=== PATIENT | male | born 1955 | race Caucasian/White ===

== ENCOUNTER 2018-04-21 07:48 | Day surgery (SDC) | payer BC ==
[~2018-04-21 07:48] MED LIST: LIDOCAINE 2% INJ 100 MG/5 ML SDV (FOR ANES.) As Ordered; PROPOFOL 200 MG/20 ML VIAL As Ordered
[2018-04-21] MEDS: NS 1,000 ML IV (08:00)
[2018-04-21] MEDS ORDERED: PROPOFOL 200 MG/20 ML VIAL As Ordered (09:19)
[2018-04-21] MEDS ORDERED: ONDANSETRON 4MG/2ML VIAL (J2405) As Ordered (09:25)
== END 2018-04-21 10:17 | disposition home or self-care (01) ==
LOC: M OPP 07:48
DX: Z12.11 Encounter for screening for malignant neoplasm of colon (principal); K64.0 First degree hemorrhoids; K57.30 Diverticulosis of large intestine without perforation or abscess without bleeding
CPT/HCPCS: 45378

== ENCOUNTER 2018-10-04 13:09 | Day surgery (SDC) | payer BC ==
[~2018-10-04] VITALS: Ht 182.9 cm; Wt 93.0 kg
[2018-10-04] MEDS: NS 1,000 ML IV ONE (06:00)
[~2018-10-04 13:09] MED LIST changes: -LIDOCAINE 2% INJ 100 MG/5 ML SDV (FOR ANES.) As Ordered; +MAXA10TA14 PO; +PRIL20CA9 PO; +PRIL20TA2 PO; -PROPOFOL 200 MG/20 ML VIAL As Ordered; +VIAG100T PO
[2018-10-04] MEDS ORDERED: fentaNYL 100 MCG/2 ML INJECTION (J3010) As Ordered ONE (15:09)
[2018-10-04] MEDS ORDERED: LIDOCAINE 2% INJ 100 MG/5 ML SDV (FOR ANES.) As Ordered ONE (15:09)
[2018-10-04] MEDS ORDERED: PROPOFOL 500 MG/50 ML VIAL As Ordered ONE (15:09)
--- NOTE | 2018-10-04 15:25 | ROOR ---
Patient Name: Devin Wolfe Procedure Date: 10/04/2018 3:07 PM Date of : 1955 Age: 63 Room: [facility] Gender: Male Note Status: Finalized Procedure: Upper Endoscopy + Biopsies Indications: Heartburn, Exclusion of Brown's esophagus Providers: Catarino Roman MD Referring MD: DARYL BUSTILLOS JR, MD Requesting Provider: Medicines: Monitored Anesthesia Care Complications: No immediate complications. Procedure: Pre-Anesthesia Assessment: - The heart rate, respiratory rate, oxygen saturations, blood pressure, adequacy of pulmonary ventilation, and response to care were monitored throughout the procedure. The Endoscope was introduced through the mouth, and advanced to the second part of duodenum. The upper GI endoscopy was accomplished without difficulty. The patient tolerated the procedure well. Findings: The Z-line was irregular and was found 40 cm from the incisors. Multiple biopsies were obtained with cold forceps for evaluation to rule out Brown's Esophagus randomly at the gastroesophageal junction. A small hiatal hernia was present. No other significant abnormalities were identified in a careful examination of the stomach. The exam of the duodenum was otherwise normal. Impression: - Z-line irregular, 40 cm from the incisors. - Small hiatal hernia. - Multiple biopsies were obtained at the gastroesophageal junction. - The examination was otherwise normal. Recommendation: - Patient has a contact number available for emergencies. The signs and symptoms of potential delayed complications were discussed with the patient. Return to normal activities tomorrow. Written discharge instructions were provided to the patient. - High fiber diet. - Discharge patient to home. - Follow an antireflux regimen. - Continue present medications. - Await pathology results. - Telephone GI clinic for pathology results in 1 week. - Return to referring physician. - Repeat upper endoscopy for surveillance based on pathology results. - The findings and recommendations were discussed with the patient's family. Catarino Roman MD Catarino Roman MD 10/04/2018 3:24:58 PM Electronically signed by Catarino Roman MD Number of Addenda: 0 Note Initiated On: 10/04/2018 3:07 PM Estimated Blood Loss: Estimated blood loss: none.
[2018-10-04 15:35] VITALS: BP 118/72
== END 2018-10-04 15:55 | disposition home or self-care (01) ==
LOC: M OPP 13:09
PROVIDERS: ATTEND Internal Medicine Gastroenterology
DX: K22.8 Other specified diseases of esophagus (principal); K44.9 Diaphragmatic hernia without obstruction or gangrene; R12 Heartburn
CPT/HCPCS: 43239; 88305; J3010

== ENCOUNTER → 2021-11-22 | Outpatient (CLI) | payer BC, MEDICARE | LOC: M PLALAB 09:38 | PROVIDERS: ATTEND Nurse Practitioner Women's Health | DX: R97.20 Elevated prostate specific antigen [PSA] (principal) ==

== ENCOUNTER → 2022-05-23 | Outpatient (REF) | payer MEDICARE, BC ==
[~2022-05-23] MED LIST changes: -MAXA10TA14 PO; +RIZA10TA64 PO
== END ==
LOC: M LAB REF 12:32
PROVIDERS: ATTEND Internal Medicine
DX: R97.20 Elevated prostate specific antigen [PSA] (principal)

== ENCOUNTER → 2022-10-07 | Outpatient (REF) | payer MEDICARE, BC | LOC: M LAB REF 12:50 | PROVIDERS: ATTEND Internal Medicine | DX: R68.82 Decreased libido (principal) ==

== ENCOUNTER 2023-03-08 12:13 | Emergency (ER) | payer BC, MEDICARE ==
[~2023-03-08] VITALS: Ht 182.9 cm; Wt 98.6 kg
[2023-03-08] MEDS ORDERED: NS 1,000 ML IV ONE (13:35)
[2023-03-08 13:54] LABS: BASO % 0.6 % (0.0-1.0); EOS # 0.4 10^3/uL (0.0-0.5); EOS % 6.3 % (0.0-3.0); HEMATOCRIT 44.3 % (42.0-52.0); HEMOGLOBIN 15.5 g/dl (13.5-17.5); LYMPH # 1.2 10^3/uL (1.5-5.0); LYMPH % 18.7 % (24.0-44.0); MEAN CORPUSCULAR HEMOGLOBIN 30.1 pg (27.0-33.0); MONO # 0.5 10^3/uL (0.0-0.8); MONO % 7.7 % (2.0-8.0); NEUTROPHILS # 4.4 10^3/uL (1.5-8.5); NEUTROPHILS % 66.5 % (36.0-66.0); PLATELET COUNT, AUTOMATED 224 10^3/uL (150-450); RED BLOOD COUNT 5.15 10^6/uL (4.30-6.10); WHITE BLOOD COUNT 6.5 10^3/uL (4.0-10.0)
[2023-03-08] MEDS ORDERED: FLOM0.4C39 PO (15:15)
[2023-03-08 15:42] VITALS: BP 131/81; TEMP 97.8; O2SAT 98
== END 2023-03-08 15:44 | disposition home or self-care (01) ==
LOC: M ED 12:13
DX: N20.1 Calculus of ureter (principal); N40.1 Benign prostatic hyperplasia with lower urinary tract symptoms; Z79.899 Other long term (current) drug therapy

== ENCOUNTER 2023-04-20 13:04 | Day surgery (SDC) | payer MEDICARE ==
[~2023-04-20] VITALS: Ht 182.9 cm; Wt 101.2 kg
[~2023-04-20 13:04] MED LIST changes: +FLOM0.4C39 PO; +NS 1,000 ML IV ONE; +OMEP-173 PO
[2023-04-20] MEDS ORDERED: fentaNYL 100 MCG/2 ML INJECTION As Ordered ONE (14:20)
[2023-04-20] MEDS ORDERED: propofoL 200 MG/20 ML VIAL As Ordered ONE (14:21)
[2023-04-20] MEDS ORDERED: LIDOCAINE 2% 100MG/5ML SDV (FOR ANES.) As Ordered ONE (14:22)
[2023-04-20 14:34] VITALS: TEMP 97.7
[2023-04-20 14:55] VITALS: BP 115/68; O2SAT 98
== END 2023-04-20 15:02 | disposition home or self-care (01) ==
LOC: M OPP 13:04
PROVIDERS: ATTEND Internal Medicine Gastroenterology
DX: K31.A19 Gastric intestinal metaplasia without dysplasia, unspecified site (principal); K22.89 Other specified disease of esophagus; K44.9 Diaphragmatic hernia without obstruction or gangrene; K21.9 Gastro-esophageal reflux disease without esophagitis; G43.909 Migraine, unspecified, not intractable, without status migrainosus; N40.0 Benign prostatic hyperplasia without lower urinary tract symptoms; Z79.899 Other long term (current) drug therapy
CPT/HCPCS: 43239; 88305; J3010

== ENCOUNTER → 2025-02-15 | Outpatient (CLI) | payer MEDICARE ==
[~2025-02-15] MED LIST changes: -FLOM0.4C39 PO; -NS 1,000 ML IV ONE; +TAMS-18 PO
== END ==
LOC: M WUC 09:39
PROVIDERS: ATTEND Nurse Practitioner Adult Health
DX: R05.9 Cough, unspecified (principal)

== ENCOUNTER 2025-04-10 10:49 | Day surgery (SDC) | payer MEDICARE ==
[~2025-04-10] VITALS: Ht 182.9 cm; Wt 99.5 kg
[~2025-04-10 10:49] MED LIST changes: +ALBU8.5H INH; +OMEP40CA5 PO
[2025-04-10] MEDS ORDERED: LIDOCAINE 2% 100 MG/5 ML SDV (FOR ANES.) As Ordered ONE (11:21)
[2025-04-10 12:02] VITALS: BP 114/64; O2SAT 97
== END 2025-04-10 12:30 | disposition home or self-care (01) ==
LOC: M OPP 10:49
PROVIDERS: ATTEND Internal Medicine Gastroenterology
DX: K22.89 Other specified disease of esophagus (principal); K44.9 Diaphragmatic hernia without obstruction or gangrene; K22.70 Barrett's esophagus without dysplasia; R12 Heartburn; Z79.899 Other long term (current) drug therapy; J45.909 Unspecified asthma, uncomplicated